=== PATIENT | female | born 1950 | race Caucasian/White ===

== ENCOUNTER 2018-07-07 10:23 | Inpatient (IN) | payer MEDICARE ==
[2018-07-07 10:54] LABS: ADD MAN DIFF? NO
[2018-07-07 11:00] LABS: WHITE BLOOD COUNT 7.1 10^3/ul (4.8-10.8)
[2018-07-07 11:00] LABS: BASOPHIL # 0.1 10^3/ul (0.0-0.1); BASOPHILS % 0.7 % (0.0-2.0); EOSINOPHILS # 0.1 10^3/ul (0.0-0.5); EOSINOPHILS % 0.9 % (0.0-7.0); HEMATOCRIT 36.7 % (37.0-47.0); HEMOGLOBIN 12.4 g/dl (12.0-16.0); LYMPHOCYTES # 1.8 10^3/ul (0.8-2.9); MEAN CORPUSCULAR HEMOGLOBIN 29.2 pg (29.0-33.0); MEAN CORPUSCULAR HGB CONC 33.8 g/dl (32.0-37.0); MEAN CORPUSCULAR VOLUME 86.4 fl (82.0-101.0); MONOCYTE # 0.5 10^3/ul (0.3-0.9); MONOCYTES % 7.5 % (0.0-11.0); NEUTROPHIL # 4.6 10^3/ul (1.6-7.5); NEUTROPHILS % 64.5 % (39.0-77.0); PLATELET COUNT 154 10^3/UL (140-415); RED BLOOD COUNT 4.25 10^6/ul (4.20-5.40); RED CELL DISTRIBUTION WIDTH 13.2 % (11.5-14.5)
[2018-07-07] MEDS: NITROGLYCERIN 2% 1 GM OINT PKT TD (11:17)
[2018-07-07 11:19] LABS: ALANINE AMINOTRANSFERASE 38 IU/L (13-69); ALBUMIN/GLOBULIN RATIO 1.17; ALKALINE PHOSPHATASE 111 IU/L (42-121); ANION GAP 17 (8-16); ASPARTATE AMINO TRANSFERASE 34 IU/L (15-46); BILIRUBIN,INDIRECT 0.6 mg/dl (0-1.1); BILIRUBIN,TOTAL 0.6 mg/dl (0.2-1.3); BLOOD UREA NITROGEN 38 mg/dl (7-20); CARBON DIOXIDE 20 mmol/L (21-31); CHLORIDE 105 mmol/L (97-110); CREATININE 1.06 mg/dl (0.44-1.00); GLUCOSE 118 mg/dl (70-220); INR 0.88; PT RATIO 0.9; SODIUM 138 mmol/L (135-144); TOTAL PROTEIN 7.4 g/dl (6.1-8.1)
[2018-07-07 11:20] LABS: PARTIAL THROMBOPLASTIN TIME 23.9 Sec (23.0-35.0)
[2018-07-07] MEDS: ASPIRIN 325 MG TAB PO (11:20)
[2018-07-07 11:29] LABS: TROPONIN-I < 0.012 ng/ml (0.000-0.120)
[2018-07-07] MEDS ORDERED: ONDANSETRON 4 MG INJ IV (12:30)
[2018-07-07] MEDS ORDERED: ACETAMINOPHEN 325 MG TAB PO (12:30)
[2018-07-07 14:43] LABS: TROPONIN-I 0.038 ng/ml (0.000-0.120)
[2018-07-07] MEDS ORDERED: NACL 0.9% 3 ML SYG IV (15:00)
[2018-07-07] MEDS ORDERED: HYDROCODONE/APAP (5/325) TAB PO (15:00)
[2018-07-07 18:46] LABS: TROPONIN-I 0.035 ng/ml (0.000-0.120)
[2018-07-07] MEDS: SPIRONOLACTONE 50 MG TAB PO (21:00)
[2018-07-07] MEDS: ATORVASTATIN 40 MG TAB PO (21:00)
[2018-07-08 06:13] LABS: ADD MAN DIFF? NO
[2018-07-08 06:23] LABS: BASOPHILS % 0.4 % (0.0-2.0); EOSINOPHILS # 0.1 10^3/ul (0.0-0.5); HEMATOCRIT 37.6 % (37.0-47.0); HEMOGLOBIN 12.8 g/dl (12.0-16.0); LYMPHOCYTES % 14.1 % (15.0-51.0); MEAN CORPUSCULAR HEMOGLOBIN 29.4 pg (29.0-33.0); MEAN CORPUSCULAR VOLUME 86.2 fl (82.0-101.0); MEAN PLATELET VOLUME 10.9 fl (7.4-10.4); MONOCYTE # 0.5 10^3/ul (0.3-0.9); MONOCYTES % 7.1 % (0.0-11.0); NEUTROPHIL # 5.3 10^3/ul (1.6-7.5); NEUTROPHILS % 77.1 % (39.0-77.0); PLATELET COUNT 146 10^3/UL (140-415); RED BLOOD COUNT 4.36 10^6/ul (4.20-5.40); RED CELL DISTRIBUTION WIDTH 13.2 % (11.5-14.5)
[2018-07-08 06:23] LABS: WHITE BLOOD COUNT 6.9 10^3/ul (4.8-10.8)
[2018-07-08 06:55] LABS: ALANINE AMINOTRANSFERASE 25 IU/L (13-69); ALBUMIN 4.4 g/dl (3.3-4.9); ALBUMIN/GLOBULIN RATIO 1.41; ALKALINE PHOSPHATASE 83 IU/L (42-121); ANION GAP 15 (8-16); ASPARTATE AMINO TRANSFERASE 34 IU/L (15-46); BILIRUBIN,INDIRECT 0.5 mg/dl (0-1.1); BILIRUBIN,TOTAL 0.5 mg/dl (0.2-1.3); BLOOD UREA NITROGEN 28 mg/dl (7-20); CALCIUM 9.9 mg/dl (8.4-10.2); CARBON DIOXIDE 23 mmol/L (21-31); CHLORIDE 103 mmol/L (97-110); CHOL/HDL RATIO 4.2 RATIO; CHOLESTEROL 147 mg/dl (100-200); CREATININE 1.01 mg/dl (0.44-1.00); GLUCOSE 119 mg/dl (70-220); HDL CHOLESTEROL 35 mg/dl (33-92); LDL CHOLESTEROL,CALCULATED 85 mg/dl; POTASSIUM 4.7 mmol/L (3.5-5.1); SODIUM 136 mmol/L (135-144); TOTAL PROTEIN 7.5 g/dl (6.1-8.1); TRIGLYCERIDES 137 mg/dl (0-149)
[2018-07-08 07:10] LABS: HEMOGLOBIN A1C 6.3 % (0-5.9)
[2018-07-08 07:40] LABS: THYROID STIMULATING HORMONE 0.809 MIU/L (0.465-4.680)
[2018-07-08] MEDS: SPIRONOLACTONE 50 MG TAB PO ×2 (08:24→21:33)
[2018-07-08] MEDS: ASPIRIN 81 MG TAB PO (08:24)
[2018-07-08] MEDS: CHLORTHALIDONE 25 MG TAB PO (08:28)
[2018-07-08] MEDS: LOSARTAN 50 MG TAB PO (08:29)
[2018-07-08] MEDS: ATORVASTATIN 40 MG TAB PO (21:33)
[2018-07-08] MEDS: METOPROLOL 25 MG TAB PO (21:34)
[2018-07-09] MEDS: ASPIRIN 81 MG TAB PO (08:04)
[2018-07-09] MEDS: LOSARTAN 50 MG TAB PO (08:05)
[2018-07-09] MEDS: CHLORTHALIDONE 25 MG TAB PO (08:05)
[2018-07-09] MEDS: SPIRONOLACTONE 50 MG TAB PO (08:05)
[2018-07-09] MEDS: METOPROLOL 25 MG TAB PO (08:05)
[2018-07-09] MEDS: REGADENOSON 0.4 MG/5 ML SYG (10:17)
== END 2018-07-09 13:40 | disposition home or self-care (01) | DRG 204 ==
LOC: E/R 10:23 → TEL 12:24
DX: R06.02 Shortness of breath (principal); I10 Essential (primary) hypertension; E78.5 Hyperlipidemia, unspecified
CPT/HCPCS: 36415; 71045; 78452; 80053; 80061; 83036; 84443; 84484; 85025; 85378; 85610; 85730; 93005; 93017; 93306; 99285-25; G0378